=== PATIENT | female | born 1950 | race Asian ===

== ENCOUNTER 2019-03-28 06:39 | Day surgery (SDC) | payer MEDICARE, MEDICAID ==
--- NOTE | 2019-03-24 18:30 | Pre-op HX & Phy Repo 2 SIG ---
DATE OF ADMISSION: 03/28/2019 ANTICIPATED DATE OF SURGERY: March 29. PREOPERATIVE DIAGNOSIS: Epiretinal membrane, left eye. BRIEF NOTE: This is the first [facility] admission for the patient, who is a very nice 68-year-old lady with blurred vision in both eyes. The patient underwent cataract surgery in the left eye in 2015 and has noted progressive diminution of vision on the left side as well as on the right. On examination, she was found to have a significant epiretinal membrane. She is admitted for surgery. PAST MEDICAL HISTORY: Remarkable for hypertension, thyroid disease, and elevated cholesterol. She is a nonsmoker. CURRENT MEDICATIONS: Include topical prednisolone acetate, furosemide, amlodipine, enalapril, levothyroxine, and atenolol. ALLERGIES: She has no allergies. PHYSICAL EXAMINATION: Best vision at the time of the visit was 20/80 in the right eye and 20/200 in the left with pressures of 14 and 13. The anterior segments were reasonably quiet. There was tyefb-tz-dxinsyaw cortical and nuclear cataract on the right side. The left showed a posterior chamber lens in reasonable position. Funduscopic examination of both eyes showed thickening of the maculae with moderately dense epiretinal membranes. No evidence of subretinal hemorrhage was seen. ASSESSMENT: 1. Epiretinal membrane bilaterally. 2. Cataract, right eye. 3. Pseudophakia, left eye. PLAN: The plan is to perform an initial epiretinal membrane peel on the left eye at this visit. The risks and benefits of surgery were gone over with the patient with potential for infection, retinal detachment, glaucoma, and possibility of loss of the eye. The risk of anesthesia was also discussed. The patient understands and consents to the surgery, which will be performed on Thursday. Juarez Kamara M.D. DR: Emi JOB#: [id number] CC:
[~2019-03-28] VITALS: Ht 149.9 cm; Wt 55.8 kg
[2019-03-28] VITALS (8 sets, daily range): BP systolic 109–121; BP diastolic 73–85
[2019-03-28] MEDS ORDERED: Midazolam 2mg/2ml Inj ONE (07:04)
--- NOTE | 2019-03-28 07:37 | Pre-Procedure Note/Attestation ---
Pre-Procedure Note/Attestation Complete Prior to Procedure Planned Procedure: left Procedure Narrative: PPV, membrane peel. Kenalog injection, possible laser, possible gas fluid exchange LEFT eye Indications for Procedure Pre-Operative Diagnosis: Macular pucker LEFT eye Attestation I attest that I discussed the nature of the procedure; its benefits; risks and complications; and alternatives (and the risks and benefits of such alternatives ), prior to the procedure, with the patient (or the patient's legal banking representative). I attest that, if there was a reasonable possibility of needing a blood transfusion, the patient (or the patient's legal banking representative) was given the [facility] standardized written summary, pursuant to the [place] Blood Safety Act ([place] Health and Safety Code # 1645, as amended). I attest that I re-evaluated the patient just prior to the surgery and that there has been no change in the patient's H&P, except as documented below: Juarez Kamara MD Mar 28, 2019 07:37
[2019-03-28] MEDS: Cyclopentolate 1% Opth Sol 2ml LEFT EYE SCH ×3 (07:40→08:06)
[2019-03-28] MEDS: Phenylephrine 2.5% Op 2ml Soln LEFT EYE SCH ×3 (07:40→08:06)
[2019-03-28] MEDS: Flurbiprofen 0.03% Opth Sol 2.5ml LEFT EYE SCH ×3 (07:41→08:06)
[2019-03-28] MEDS: Vigamox Opth Soln 3ml LEFT EYE SCH ×3 (07:41→08:06)
--- NOTE | 2019-03-28 07:50 | NUR ---
IV LR WAS STARTED BY MOHINDER WINN RN. NO S/S OF INFILTRATION.
[2019-03-28] MEDS ORDERED: NORVASC10 MG ORAL (07:59)
[2019-03-28] MEDS ORDERED: ATENOLOL25 MG ORAL (07:59)
[2019-03-28] MEDS ORDERED: ASPIRIN81 MG ORAL (07:59)
[2019-03-28] MEDS ORDERED: SYNTHROID88 MCG ORAL (07:59)
[2019-03-28] MEDS ORDERED: ENALAPRIL MALEA20 MG ORAL (07:59)
[2019-03-28] MEDS ORDERED: CRESTOR40 MG ORAL (07:59)
[2019-03-28] MEDS ORDERED: FUROSEMIDE20 M1 ORAL (07:59)
[2019-03-28] MEDS ORDERED: Pred Forte 1% Opth Susp 1ml LEFT EYE ONE (08:00)
[2019-03-28] MEDS ORDERED: Indocyanine Green 25mg Inj INJ ONE (09:00)
[2019-03-28] MEDS ORDERED: BSS 15ml BTL ONE (09:03)
[2019-03-28] MEDS ORDERED: Pred Forte 1% Opth Susp 1ml ONE (09:03)
[2019-03-28] MEDS ORDERED: BSS 500ml btl ONE (09:03)
[2019-03-28] MEDS ORDERED: Dexamethasone 4mg/ml vial ONE (09:03)
[2019-03-28] MEDS ORDERED: EPINEPHrine 1mg/1ml Amp ONE (09:03)
[2019-03-28] MEDS ORDERED: Bupivacaine 0.75% 30ml vial INJ ONE (09:03)
[2019-03-28] MEDS ORDERED: Tetracaine 0.5% Opth 4ml Soln ONE (09:03)
[2019-03-28] MEDS ORDERED: Lidocaine 2% MPF 5ml Vial INJ ONE (09:03)
[2019-03-28] MEDS ORDERED: Povidone-Iodine 5% opth solution ONE (09:03)
[2019-03-28] MEDS ORDERED: Sodium Hyaluronate 10 mg/ml 0.85ml ONE ×2 (09:04→10:45)
[2019-03-28] MEDS ORDERED: Hyaluronidase 150 units/ml vial ONE (09:04)
[2019-03-28] MEDS ORDERED: LR 1000ml 1,000 ML IVLG SCH (09:06)
[2019-03-28] MEDS ORDERED: NS Irrig 1000ml ONE (09:09)
[2019-03-28] MEDS ORDERED: Sterile Water Irrig 1000ml IRRIG ONE (09:09)
[2019-03-28] MEDS ORDERED: Propofol 200mg/20ml IV ONE (09:09)
[2019-03-28] MEDS ORDERED: HYDROcodone/Acetamin 5/325 tab ORAL PRN (09:15)
[2019-03-28] MEDS ORDERED: Midazolam 2mg/2ml Inj IVP PRN (09:15)
[2019-03-28] MEDS ORDERED: oxyCODONE HCL/Acetaminophen 5/325mg ORAL PRN (09:15)
[2019-03-28] MEDS ORDERED: Hydromorphone 0.5mg/0.5ml inj IVP PRN (09:15)
[2019-03-28] MEDS ORDERED: Atropine Sulfate 0.4mg/ml inj IVP PRN (09:15)
[2019-03-28] MEDS ORDERED: HYDROcodone/Acetamin 7.5/325 tab ORAL PRN (09:15)
[2019-03-28] MEDS ORDERED: LORazepam Inj 2mg/ml 1ml IV PRN (09:15)
[2019-03-28] MEDS ORDERED: fentaNYL 100 mcg/2 mL IV PRN (09:15)
[2019-03-28] MEDS ORDERED: Metoclopramide 10mg/2ml Inj IVP PRN (09:15)
[2019-03-28] MEDS ORDERED: Ketorolac 30mg Inj IV PRN ×2 (09:15)
[2019-03-28] MEDS ORDERED: Labetalol 5mg/ml 20ml vial IV PRN (09:15)
[2019-03-28] MEDS ORDERED: Meperidine 50mg/ml Inj(FOR RIGORS ONLY) IVP PRN (09:15)
[2019-03-28] MEDS ORDERED: DiphenhydrAMINE 50mg/ml Inj IVP PRN (09:15)
--- NOTE | 2019-03-28 09:16 | Anethesia Preoperative Eval ---
Anesthesia Pre-op PMH/ROS General Date of Evaluation: Mar 28, 2019 Time of Evaluation: 09:09 Anesthesiologist: Narciso ASA Score: ASA 3 Mallampati Score Class I : Soft palate, uvula, fauces, pillars visible Class II: Soft palate, uvula, fauces visible Class III: Soft palate, base of uvula visible Class IV: Only hard plate visible Mallampati Classification: Class II Surgeon: Asad Diagnosis: Macular Pucker OS Surgical Procedure: Vitrectomy OS Anesthesia History: none Family History: no anesthesia problems Allergies: Coded Allergies: No Known Allergies (Unverified , 03/25/19) Medications: see eMAR Patient NPO?: Yes Past Medical History Cardiovascular: Reports: HTN, other - HL HEENT: Reports: cataract (L), cataract (R) Hematology/Immune: Reports: other - Thyroid CA PSxH Narrative: Hernia, Thyroid SX Anesthesia Pre-op Phys. Exam Physician Exam Last Vital Signs Date Time Temp Pulse Resp B/P (MAP) Pulse Ox O2 Delivery O2 Flow Rate FiO2 03/28/19 07:42 Room Air 03/28/19 07:39 97.7 73 20 121/85 98 Constitutional: NAD Neurologic: CN 2-12 intact Cardiovascular: RRR Respiratory: CTA Gastrointestinal: S/NT/ND Airway Exam Mallampati Score: Class II MO: full ROM: limited Teeth: missing, intact Anesthesia Pre-op A/P Risk Assessment & Plan Assessment: ASA 3 Plan: GA Status Change Before Surgery: No Leonardo Stuart MD Mar 28, 2019 09:16
--- NOTE | 2019-03-28 09:17 | Immediate Post-Op Evaluation ---
Immediate Post-Op Evalulation Immediate Post-Op Evalulation Procedure: Vitrectomy OS Date of Evaluation: Mar 28, 2019 Time of Evaluation: 10:27 IV Fluids: 300 LR Blood Products: 0 Estimated Blood Loss: 1 Urinary Output: 0 Blood Pressure Systolic: 120 Blood Pressure Diastolic: 82 Pulse Rate: 65 Respiratory Rate: 16 O2 Sat by Pulse Oximetry: 100 Temperature (Fahrenheit): 98.7 Pain Score (1-10): 1 Nausea: No Vomiting: No Complications 0 Patient Status: awake, reacts, patent, none Hydration Status: adequate Leonardo Stuart MD Mar 28, 2019 09:17
--- NOTE | 2019-03-28 09:26 | 48 Hour Post Anesthesia Eval ---
Post Anesthesia Evaluation Procedure: Vitrectomy OS Date of Evaluation: Mar 28, 2019 Time of Evaluation: 10:27 Blood Pressure Systolic: 123 0: 78 Pulse Rate: 74 Respiratory Rate: 18 Temperature (Fahrenheit): 98.6 O2 Sat by Pulse Oximetry: 100 Airway: patent Nausea: No Vomiting: No Pain Intensity: 1 Hydration Status: adequate Cardiopulmonary Status: Stable Mental Status/LOC: patient returned to baseline Follow-up Care/Observations: 0 Post-Anesthesia Complications: 0 Follow-up care needed: ready to discharge Leonardo Stuart MD Mar 28, 2019 09:26
--- NOTE | 2019-03-28 10:15 | Brief Operative Note ---
Immediate Post Operative Note Operative Note Chief Complaint: Distorted and blurred vision LEFT eye Pre-op Diagnosis: Macular pucker LEFT eye Procedure: PPV, membrane peel with ICG assist, air-fluid exchange LEFT eye Post-op Diagnosis: same as pre-op Surgeon: Asad Hotel [employer] Concierge: none Anesthesiologist: Mohamud Anesthesia: MAC Specimen: none Complications: none Condition: stable Fluids: Per anesthesia Estimated Blood Loss: none Drains: none Implant(s) used?: No Juarez Kamara MD Mar 28, 2019 10:15
--- NOTE | 2019-03-28 15:45 | Operative Note - Dictated ---
DATE OF OPERATION: 03/28/2019 POSTOPERATIVE DIAGNOSIS: Macular pucker, left eye. POSTOPERATIVE DIAGNOSIS: Macular pucker, left eye. PROCEDURES: 1. Pars plana vitrectomy. 2. ICG assisted membrane and ILM peel. 3. Air-fluid exchange, left eye. SURGEON: Juarez Kamara M.D. SWAGING MACHINE ADJUSTER: None. ANESTHESIA: Local with sedation. ANESTHESIOLOGIST: Leonardo Stuart M.D. JUSTIFICATION FOR SURGERY: This 68-year-old lady with a prior history of retinal detachment repair, noted distorted and blurred vision of the left eye. She was found to have a moderately dense epiretinal membrane with distortion. BRIEF NOTE: The patient was brought to the operative room, placed on operating room table in supine position. After a time-out had been performed and agreed upon by the staff, and initial monitoring secured by Dr. Stuart, retrobulbar and Van Lint blocks were given in the standard way. When the blocks taken effect, she was prepped and draped in normal manner. The lid speculum was inserted into the left eye. Using a 23-gauge trocar system, cannulas were placed in all except infranasal quadrant. Infusion was secured inferotemporally. Vitrectomy was begun posterior to the lens. Vitrectomy had previously been performed so only a limited peripheral vitrectomy was done leaving the smaller skirt. Scleral depression was done and peripheral scleral buckle was seen with widespread retinopexy. There were no tears or detachments. A significant pucker was noted posteriorly. A posterior viewing lens was then inserted and the eye examined. Gentle staining with ICG dye, one drop was done and using the intra-ocular forceps, an epiretinal membrane was elevated and removed from the posterior pole. Distortion still remained so a slight amount of additional ICG was used to stain the ILM. Once this was stained, the ILM was engaged at a point nasal to the macula and a circular area roughly 2 disc diameters in size was removed from the macula itself. No problems were encountered. All remnants of the tissue were removed with the vitreous cutter and an air-fluid exchange was performed to the volume of about 95%. The cannulas were removed and the superonasal and inferotemporal wounds were closed with a single throw of 8-0 Vicryl suture. The supratemporal wound was noted to be neatly self-sealing. Subconjunctival Decadron and gentamicin were then injected inferiorly and topical atropine drops, prednisolone drops, Ofoxacin drops, and Maxitrol ointment were instilled. The eye was patched and shielded. The patient taken to recovery in excellent condition. There were no complications.G Juarez Kamara M.D. DR: Eleonora JOB#: [id number] CC: Juarez Kamara M.D.; Fax#: [phone] [facility]
--- NOTE | 2019-03-28 17:45 | Operative Note - Dictated ---
DATE OF OPERATION: 03/28/2019 PREOPERATIVE DIAGNOSIS: Macular pucker, left eye. POSTOPERATIVE DIAGNOSIS: Macular pucker, left eye. PROCEDURES: 1. Pars plana vitrectomy. 2. ICG assisted membrane and ILM peel. 3. Air-fluid exchange, left eye. SURGEON: Juarez Kamara M.D. WATER PUMPER: None. ANESTHESIA: Local with sedation. ANESTHESIOLOGIST: Leonardo Stuart M.D. JUSTIFICATION FOR SURGERY: This 68-year-old lady with a prior history of retinal detachment repair, noted distorted and blurred vision of the left eye. She was found to have a moderately dense epiretinal membrane with distortion. BRIEF NOTE: The patient was brought to the operative room, placed on operating room table in supine position. After a time-out had been performed and agreed upon by the staff, and initial monitoring secured by Dr. Stuart, retrobulbar and Van Lint blocks were given in the standard way. When the blocks taken effect, she was prepped and draped in normal manner. The lid speculum was inserted into the left eye. Using a 23-gauge trocar system, cannulas were placed in all except infranasal quadrant. Infusion was secured inferotemporally. Vitrectomy was begun posterior to the lens. Vitrectomy had previously been performed so only a limited peripheral vitrectomy was done leaving the smaller skirt. Scleral depression was done and peripheral scleral buckle was seen with widespread retinopexy. There were no tears or detachments. A significant pucker was noted posteriorly. A posterior viewing lens was then inserted and the eye examined. Gentle staining with ICG dye, one drop was done and using the intra-ocular forceps, an epiretinal membrane was elevated and removed from the posterior pole. Distortion still remained so a slight amount of additional ICG was used to stain the ILM. Once this was stained, the ILM was engaged at a point nasal to the macula and a circular area roughly 2 disc diameters in size was removed from the macula itself. No problems were encountered. All remnants of the tissue were removed with the vitreous cutter and an air-fluid exchange was performed to the volume of about 95%. The cannulas were removed and the superonasal and inferotemporal wounds were closed with a single throw of 8-0 Vicryl suture. The supratemporal wound was noted to be neatly self-sealing. Subconjunctival Decadron and gentamicin were then injected inferiorly and topical atropine drops, prednisolone drops, drops, and Maxitrol ointment were instilled. The eye was patched and shielded. The patient taken to recovery in excellent condition. There were no complications. Juraez Kamara M.D. DR: Eleonora JOB#: [id number] CC: Juarez Kamara M.D.; Fax#: [phone]
== END 2019-03-28 11:45 | disposition home or self-care (01) ==
LOC: SUR 06:39
DX: H35.372 Puckering of macula, left eye (principal); I10 Essential (primary) hypertension; E78.00 Pure hypercholesterolemia, unspecified; Z79.899 Other long term (current) drug therapy; H25.11 Age-related nuclear cataract, right eye; H25.011 Cortical age-related cataract, right eye; Z96.1 Presence of intraocular lens; Z85.850 Personal history of malignant neoplasm of thyroid
CPT/HCPCS: 67042; J0171; J1100; J2250; J3470; J3490; 94003; 94150